=== PATIENT | male | born 1980 | race Two or more races ===

== ENCOUNTER 2017-08-30 02:52 | Emergency (ER) | payer BC ==
[2017-08-30] MEDS ORDERED: SODIUM CHLORIDE 1,000 ML IV STA (03:24)
--- NOTE | 2017-08-30 03:25 | PDOC ---
History of Present Illness - General Stated Complaint: PAIN,RT SIDE Time Seen by Provider: 08/30/17 03:24 History Source: Patient Exam Limitations: No Limitations - History of Present Illness Travel History: No Initial Comments: 08/30/17 06:20 37-year-old male with no medical history presents to the emergency department complaining of right flank pain. Pain is described as 6/10 sharp intermittent discomfort radiating to the right quadrant without fever, chills, nausea/ vomiting, chest pain, shortness of breath, abdominal discomfort, urinary symptoms: Frequency/urgency/hesitancy, hematuria. There are no alleviating factors with the pain is exacerbated on touch. Abdominal Pain Onset Location: reports: flank (right) Past History - Past Medical History Allergies/Adverse Reactions: Allergies Allergy/AdvReac Type Severity Reaction Status Date / Time No Known Allergies Allergy Verified 08/30/17 03:58 Home Medications: Ambulatory Orders Ketorolac Tromethamine [Toradol] 10 mg PO TID #21 tablet 08/30/17 Tamsulosin HCl [Flomax] 0.4 mg PO DAILY #7 capsule 08/30/17 - Suicide/Smoking/Psychosocial Hx Smoking History: Never smoked Hx Alcohol Use: No Drug/Substance Use Hx: No Substance Use Type: None Review of Systems - Review of Systems Able to Perform ROS?: Yes Comments:: 08/30/17 06:18 CONSTITUTIONAL: Absent: fever, chills, diaphoresis, generalized weakness, malaise, loss of appetite HEENT: Absent: rhinorrhea, nasal congestion, throat pain, throat swelling, difficulty swallowing, mouth swelling, ear pain, eye pain, visual Changes CARDIOVASCULAR: Absent: chest pain, loss of consciousness, palpitations, irregular heart rate, peripheral edema RESPIRATORY: Absent: cough, shortness of breath, dyspnea with exertion, orthopnea, wheezing, stridor, hemoptysis GASTROINTESTINAL: Absent: abdominal pain, abdominal distension, nausea, vomiting, diarrhea, constipation, melena, hematochezia GENITOURINARY: Absent: dysuria, frequency, urgency, hesitancy, hematuria, flank pain, genital pain MUSCULOSKELETAL: Absent: myalgia, arthralgia, joint swelling SKIN: Absent: rash, itching, pallor HEMATOLOGIC/IMMUNOLOGIC: Absent: easy bleeding, easy bruising, lymphadenopathy, frequent infections ENDOCRINE: Absent: unexplained weight gain, unexplained weight loss, heat intolerance, cold intolerance NEUROLOGIC: Absent: headache, focal weakness or paresthesias, dizziness, unsteady gait, seizure, mental status changes, bladder or bowel incontinence PSYCHIATRIC: Absent: anxiety, depression, suicidal or homicidal ideation, hallucinations. Is the patient limited [place] proficient: No *Physical Exam - Physical Exam Comments: 08/30/17 06:18 GENERAL: Well developed, well nourished. Awake and alert. No acute distress. HEENT: Normocephalic, atraumatic. PERRLA, EOMI. No conjunctival pallor. Sclera are non- icteric. Moist mucous membranes. Oropharynx is clear. NECK: Supple. Full ROM. No JVD. Carotid pulses 2+ and symmetric, without bruits. No thyromegaly. No lymphadenopathy. CARDIOVASCULAR: Regular rate and rhythm. No murmurs, rubs, or gallops. Distal pulses are 2+ and symmetric. PULMONARY: No evidence of respiratory distress. Lungs clear to auscultation bilaterally. No wheezing, rales or rhonchi. ABDOMINAL: Soft. Non-tender. Non-distended. No rebound or guarding. No organomegaly. Normoactive bowel sounds. MUSCULOSKELETAL Normal range of motion at all joints. No bony deformities or tenderness. No CVA tenderness. EXTREMITIES: No cyanosis. No clubbing. No edema. No calf tenderness. SKIN: Warm and dry. Normal capillary refill. No rashes. No jaundice. NEUROLOGICAL: Alert, awake, appropriate. Cranial nerves 2-12 intact. No deficits to light touch and temperature in face, upper extremities and lower extremities. No motor deficits in the in face, upper extremities and lower extremities. Normoreflexic in the upper and lower extremities. Normal speech. Toes are down- going bilaterally. Gait is normal without ataxia. PSYCHIATRIC: Cooperative. Good eye contact. Appropriate mood and affect. ED Treatment Course - LABORATORY CBC & Chemistry Diagram: 08/30/17 03:25 08/30/17 03:25 - RADIOLOGY Radiology Studies Ordered: Category Date Time Status ABDOMEN & PELVIS CT WITH CONTR [CT] Stat CT Scan 08/30/17 03:23 Ordered Radiograph Interpretation: 08/30/17 06:[address]: Preliminary impression: 5 mm stone in the mid right ureter with moderate hydronephrosis and ureteral distention Medical Decision Making - Medical Decision Making 08/30/17 06:21 37-year-old male presents complaining of right sided flank pain radiating to the right groin. He does not have fever, chills, nausea/vomiting, abdominal pains, urinary symptoms. CAT scan/renal spiral shows a 5 mm stone in the mid right ureter with moderate hydronephrosis and ureteral distention. Patient was given normal saline IV 2 L. Toradol 60 mg IM. He will strain his urine. Follow- up with urology. He was advised to return back to the emergency department for severe/persistent or worsening symptoms. *DC/Admit/Observation/Transfer Diagnosis at time of Disposition: Renal colic on right side - Discharge Dispostion Disposition: HOME Condition at time of disposition: Fair Admit: No - Prescriptions Prescriptions: Ketorolac Tromethamine [Toradol] 10 mg PO TID #21 tablet Tamsulosin HCl [Flomax] 0.4 mg PO DAILY #7 capsule - Referrals Referrals: Dirk Treviño MD [Staff Physician] - - Patient Instructions Printed Discharge Instructions: Kidney Stones -- Adult Additional Instructions: Increase fluids Strain your urine Be sure to follow-up with the urologist within 48 hours Return back to the emergency department for severe/persistent/worsening symptoms - Post Discharge Activity
[2017-08-30 03:34] LABS: BASO % 1.3 % (0-2.0); EOS % 1.5 % (0-4.5); HEMATOCRIT 45.6 % (35.4-49); HEMOGLOBIN 15.8 GM/dL (11.7-16.9); LYMPH % 38.8 % (8-40); MCH 30.1 pg (25.7-33.7); MCHC 34.6 g/dl (32.0-35.9); MEAN CELL VOLUME 87.1 fl (80-96); MONO % 9.1 % (3.8-10.2); NEUT % 49.3 % (42.8-82.8); PLATELET COUNT 312 K/MM3 (134-434); RBC 5.24 M/mm3 (4.00-5.60); WHITE BLOOD COUNT 9.7 K/mm3 (4.0-10.0)
[2017-08-30 03:50] LABS: URINE APPEARANCE SLCLOUDY; URINE BILIRUBIN NEGATIVE (NEGATIVE); URINE BLOOD 3+ (NEGATIVE); URINE COLOR YELLOW; URINE GLUCOSE (UA) NEGATIVE (NEGATIVE); URINE KETONE NEGATIVE (NEGATIVE); URINE LEUK ESTERASE NEGATIVE (NEGATIVE); URINE NITRITE NEGATIVE (NEGATIVE); URINE UROBILINOGEN NEGATIVE mg/dL (0.2-1.0)
[2017-08-30 03:58] VITALS: BP 124/76; PULSE 79; TEMP 98.2; BMI 30.4
[2017-08-30 03:59] LABS: ALBUMIN 4.1 g/dl (3.4-5.0); ANION GAP 5 (8-16); BILIRUBIN,TOTAL 0.4 mg/dL (0.2-1.0); BLOOD UREA NITROGEN 15 mg/dL (7-18); CALCIUM 9.2 mg/dL (8.5-10.1); CHLORIDE 104 mmol/L (98-107); CO2 32 mmol/L (21-32); GLUCOSE,RANDOM 115 mg/dL (74-106); POTASSIUM 3.9 mmol/L (3.5-5.1); SGOT/AST 22 U/L (15-37); SGPT/ALT 47 U/L (12-78); SODIUM 141 mmol/L (136-145)
[2017-08-30 04:00] LABS: ALK PHOS 90 U/L (45-117)
[2017-08-30 04:16] LABS: URINE PROTEIN 1+ (NEGATIVE)
[2017-08-30 04:18] LABS: EPI CELLS RARE /HPF (FEW); URINE HYALINE CAST 1 /lpf; URINE MUCUS FEW
[2017-08-30] MEDS ORDERED: KETOROLAC TROMETHAMINE 60 MG/2 ML VIAL IM ONE (06:23)
[2017-08-30] MEDS ORDERED: TAMSULOSIN HCL 0.4 MG CAP.ER.24H (FP) PO ONE (06:27)
[2017-08-30] MEDS ORDERED: TAMSULOSIN HCL 0.4 MG CAP.ER.24H (FP) ONE (06:28)
[2017-08-30] MEDS ORDERED: KETOROLAC TROMETHAMINE 60 MG/2 ML VIAL ONE (06:28)
== END 2017-08-30 06:52 | disposition home or self-care (01) ==
LOC: JER 02:52
PROC: 3E0337Z Introduction of Electrolytic and Water Balance Substance into Peripheral Vein, Percutaneous Approach (ICD-10-PCS; principal; 2017-08-30)
PROC: 3E0233Z Introduction of Anti-inflammatory into Muscle, Percutaneous Approach (ICD-10-PCS; 2017-08-30)
DX: N13.2 Hydronephrosis with renal and ureteral calculous obstruction (principal)
CPT/HCPCS: 36415; 74176; 80053; 81003; 81015; 85025; 99282-25

== ENCOUNTER 2017-09-09 06:13 | Day surgery (SDC) | payer BC ==
[2017-09-08 12:03] VITALS: BMI 31.9
[2017-09-09 06:53] VITALS: TEMP 98.2
[2017-09-09 07:11] LABS: INR 1.04 (0.82-1.09); PROTHROMBIN TIME (PATIENT) 11.7 SEC (9.98-11.88)
[2017-09-09 07:14] LABS: ACTIVATED PTT 31.2 SECONDS (26.9-34.4)
[2017-09-09] MEDS ORDERED: MIDAZOLAM HCL 2 MG/2 ML SINGLE DOSE VIAL ONE ×2 (07:34→08:01)
--- NOTE | 2017-09-09 07:59 | OP ---
Operative Note - Note: Operative Date: 09/09/17 Pre-Operative Diagnosis: R ureteral calculus Operation: ESWL R Findings: R ureteral calculus Post-Operative Diagnosis: Same as Pre-op Surgeon: Dirk Treviño Anesthesiologist/MAKING MACHINE OPERATOR: Cachorro Tomlinson Anesthesia: Fractional Estimated Blood Loss (mls): 0 Operative Report Dictated: Yes
--- NOTE | 2017-09-09 09:01 | OP ---
DATE OF OPERATION: 09/09/2017 PREOPERATIVE DIAGNOSIS: Right ureteral calculus. POSTOPERATIVE DIAGNOSIS: Right ureteral calculus. PRODEDURE: Extracorporeal shock wave lithotripsy, right side. SURGEON: Dirk Gordon MD DIGITAL ASSOCIATE: None. ANESTHESIA: IV sedation. ANESTHESIOLOGIST: Cachorro Tomlinson MD SPECIMENS: None. CULTURES: None. DRAINS: None. ESTIMATED BLOOD LOSS: None. COMPLICATIONS: None. PROCEDURE WAS FOLLOWS: Patient was brought into the operating room, was placed on the operating room table in supine position. After administration of intravenous sedation, patient was positioned over the treatment head, and under fluoroscopic guidance, a 4-mm right mid ureteral calculus was identified, targeted, and delivered 3000 shocks of maximum kilovoltage with excellent fragmentation. He tolerated the procedure well. He was transferred to the recovery room in stable condition. DIRK GORDON M.D. MACHELLE/[id number]
[2017-09-09 11:11] VITALS: BP 108/68; PULSE 88
== END 2017-09-09 10:45 | disposition home or self-care (01) ==
LOC: JASU-SURG 06:13
PROVIDERS: ATTEND Urology
PROC: 0TF6XZZ Fragmentation in Right Ureter, External Approach (ICD-10-PCS; principal; 2017-09-09 08:00)
DX: N20.1 Calculus of ureter (principal)
CPT/HCPCS: 36415; 85610; 85730

== ENCOUNTER 2018-01-27 06:21 | Day surgery (SDC) | payer BC ==
[2018-01-26 16:45] VITALS: BMI 28.0
--- NOTE | 2018-01-27 07:34 | HP ---
History & Physical Update - History History: No Change - Physical Physical: No Change - Assessment Assessment: No Change - Plan Plan: No Change
--- NOTE | 2018-01-27 07:35 | OP ---
Operative Note - Note: Operative Date: 01/27/18 Pre-Operative Diagnosis: R renal calculus Operation: ESWL R Findings: 6 mm R renal calculus Post-Operative Diagnosis: Same as Pre-op Surgeon: Dirk Treviño Anesthesiologist/RESEARCH MANUFACTURING OPERATOR: Bella Morrow Anesthesia: Fractional Estimated Blood Loss (mls): 0 Operative Report Dictated: Yes
[2018-01-27] MEDS ORDERED: MIDAZOLAM HCL 2 MG/2 ML SINGLE DOSE VIAL ONE ×2 (07:54)
[2018-01-27] MEDS ORDERED: PROPOFOL 20 ML ONE ×2 (07:54→08:15)
--- NOTE | 2018-01-27 08:19 | OP ---
DATE OF OPERATION: 01/27/2018 PREOPERATIVE DIAGNOSIS: Right renal calculus. POSTOPERATIVE DIAGNOSIS: Right renal calculus. PRODEDURE: Extracorporeal shock wave lithotripsy, right renal calculus. SURGEON: Dirk Gordon MD AIR SAW OPERATOR: None. ANESTHESIA: IV sedation. ANESTHESIOLOGIST: Bella Morrow DO SPECIMENS: None. CULTURES: None. DRAINS: None. ESTIMATED BLOOD LOSS: None. COMPLICATIONS: None. PROCEDURE WAS FOLLOWS: Patient was brought into the operating room, placed on the operating room table in supine position. After the administration of intravenous sedation, patient was positioned over the treatment head, and under ultrasound guidance, a 6-mm right mid renal calculus was identified, targeted, and delivered 2500 shocks maximum kilovoltage with excellent fragmentation. He tolerated the procedure well. He was transferred to the recovery room in stable condition. DIRK GORDON M.D. [id number]
[2018-01-27] MEDS ORDERED: ONDANSETRON 4 MG/2 ML VIAL IVPUSH PRN (08:41)
[2018-01-27] MEDS ORDERED: ACETAMINOPHEN 325 MG TABLET (FP) PO PRN (08:41)
[2018-01-27] MEDS ORDERED: LACTATED RINGERS SOLUTION 1,000 ML IV SCH (08:45)
[2018-01-27 10:29] VITALS: TEMP 98.3
[2018-01-27 10:30] VITALS: BP 125/77; PULSE 80
== END 2018-01-27 10:45 | disposition home or self-care (01) ==
LOC: JASU-SURG 06:21
PROVIDERS: ATTEND Urology
PROC: 0TF3XZZ Fragmentation in Right Kidney Pelvis, External Approach (ICD-10-PCS; principal; 2018-01-27 08:00)
DX: N20.0 Calculus of kidney (principal)
CPT/HCPCS: 94760